=== PATIENT | male | born 1975 | race Hispanic/Latino ===

== ENCOUNTER 2017-09-18 09:43 | Emergency (ER) | payer SELFPAY ==
[2017-09-18] MEDS ORDERED: SUCCINYLCHOLINE CHLORIDE 200 MG/10 ML VIAL ONE (10:04)
[2017-09-18] MEDS ORDERED: MANNITOL 500 ML IVS ONE (10:09)
[2017-09-18] MEDS ORDERED: niCARdipine HCL 2.5 MG/ML AMP IVPB ONE (10:24)
--- NOTE | 2017-09-18 10:25 | CT ---
EXAM DESCRIPTION: Head: Computed Tomography. CLINICAL HISTORY: Right-sided H/A, L-sided paralysis COMPARISON: None. TECHNIQUE: Non-helical axial scans through the skull and brain, at 5.0 mm intervals, non-contrast. Coronal and sagittal 2.5 mm reconstructions. Total Exam DLP: 859.97 mGy-cm. This exam was performed according to our departmental dose-optimization program which includes automated exposure control, adjustment of the mA and/or kV according to patient size and/or use of iterative reconstruction technique; to reduce radiation dose to as low as reasonably achievable (ALARA). FINDINGS: Large intra-axial hemorrhage in the right occipital and parietal lobes at the level of the ventricles and extending to the vertex. Mass effect in the parietal and occipital lobes upper right temporal lobe and posterior right frontal lobe with midline shift. Intraventricular hemorrhage also noted on the right with dilation of the left ventricle including the left temporal horn. Left shift of the third ventricle. Hemorrhage also noted in the falx. The cerebellum tentorium is not depressed.. No tonsillar cerebellar herniation. Prominent cisterna magna. Minimal fluid in the upper sella. Vascular calcifications not present.; physiologic calcifications in the pineal gland and choroid plexus. No extra axial fluid collection or hemorrhage. No gross abnormalities of the bony calvarium. Mucoperiosteal thickening right maxillary antrum, base of the left antrum and the ethmoid air cells. IMPRESSION: 1. Large intra-axial hemorrhage in the posterior right parietal lobe and occipital lobe with mass effect on these lobes superior right temporal lobe and posterior right frontal lobe. Minimal midline shift. No depression of the cerebellar tentorium and no cerebellar tonsillar herniation. Differential includes hypertensive hemorrhagic cerebral infarction. Less likely Neoplastic primary or secondary hemorrhage, or chemical induced hemorrhage. 2. subarachnoid hemorrhage in the falx, right ventricle. Normal size of the third ventricle with dilated left lateral ventricle indicating obstructive hydrocephalus. CRITICAL COMMUNICATION: The critical value was discussed directly by phone with [facility] ER nurse at approximately 1008 hours, on 09/18/2017 Electronically signed by: Clinton Espinoza MD 09/18/2017 10:23 AM CDT
--- NOTE | 2017-09-18 10:33 | ED.PDOC ---
History of Present Illness - General Chief Complaint: Neuro Symptoms/Deficits Stated Complaint: Stroke-like sx's Time Seen by Provider: 09/18/17 10:30 Source: family - Exam Limitations: clinical condition - History of Present Illness Initial Comments: Saulo magana 41 y/o male brought by EMS aftar clling up his from work this am no t feelin well camarena mentioned left side weak.No chronic medical problem.Not taking chronic blood thinners/or aspirin.Brought by EMS FSBS glucose -137 Timing/Duration: 4-6 hours Severity: severe Episode Description: cva Improving Factors: nothing Worsening Factors: other - see hpi Associated Symptoms: sleepy, weakness Allergies/Adverse Reactions: Allergies NO KNOWN ALLERGY Allergy (Verified 09/18/17 09:49) Review of Systems - Review of Systems Unable to Obtain Due To: condition, clinical condition All other Systems: No Change from Baseline Past Medical History (General) - Patient Medical History Hx Seizures: No Hx Stroke: No Hx Hypertension: No Surgical History: no surgical history - Social History Hx Physical Abuse: No Hx Emotional Abuse: No Family Medical History - Family History Father Family History: Unknown Physical Exam - Physical Exam General Appearance: Alert, Other - profuse sweating Eye Exam: bilateral normal ENT Exam: normal ENT inspection, hearing grossly normal, pharynx normal, other Neck: full range of motion, supple, normal inspection, trachea midline Respiratory: chest non-tender, lungs clear, normal breath sounds Cardiovascular/Chest: normal peripheral pulses, regular rate, rhythm, no murmur Gastrointestinal/Abdominal: non tender, soft, no organomegaly, no pulsatile mass Back Exam: no CVA tenderness, no vertebral tenderness Extremities Exam: non-tender, no edema 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, 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: normal hearing, normal speech, facial weakness, other Motor/Sensory: positive Babinski's sign Skin Exam: normal color, warm/dry Progress - Progress Progress: 09/18/17 10:48 Vital Signs - 8 hr 09/18/17 09/18/17 09/18/17 09:43 10:15 10:22 Temperature 97.4 F L Pulse Rate [ 91 H 92 H 89 Apical] Respiratory 14 14 14 Rate Blood Pressure 146/68 194/105 213/104 [Right Arm] O2 Sat by Pulse 97 97 91 L Oximetry - Results/Orders Results/Orders: 09/18/17 10:29 Chest,1 View [RAD] Stat 09/18/17 10:30 CARDIAC ENZYME GROUP Stat COMPLETE METABOLIC PROFILE Stat PARTIAL THROMBOPLASTIN TIME Stat PROTHROMBIN TIME Stat CBC (AUTOMATED) W/AUTO DIFF Stat 09/18/17 10:34 Telemetry .ONCE 09/18/17 10:35 EKG Assessment ONCE 09/18/17 10:45 EKG STAT 09/18/17 10:48 Chest,1 View [RAD] Stat Laboratory Results - last 24 hr 09/18/17 10:30 POC Glucose 139 H Procedures - Intubation Time of Intubation: 10:52 Tube Size (cm): 8.0 Medications: Succinylcholine, Versed Breath Sounds after Intubation: equal Intubation Complications: vomited Post Intubation Xray: Yes Stroke Information - Onset of Symptoms Symptoms of Stroke: Weakness of limb Stroke Onset of Symptoms Date: 09/18/17 Stroke Onset of Symptoms Time: 06:00 - Contraindications Antithrombotic Contraindication: Medical Contraindication t-PA Contraindication: Drug Tx Not Indicated - hemorrhagic stroke Departure - Departure Clinical Impression: CVA (cerebrovascular accident due to intracerebral hemorrhage) Qualifiers: Intracerebral hemorrhage etiology: nontraumatic Cerebral hemorrhage location: cerebral hemisphere, unspecified portion Laterality: right Qualified Code(s): I61.2 - Nontraumatic intracerebral hemorrhage in hemisphere, unspecified Time of Disposition: 10:51 Disposition: Transfer to Hospital Condition: Poor Departure Forms: Patient Portal Self Enrollment Transfer to Outside Facility - Transfer Information Accepting Provider:: Neurologist Accepting Facility: [facility] NEUROLOGIST
[2017-09-18 10:43] VITALS: TEMP 97.4
[2017-09-18] MEDS ORDERED: MANNITOL 100 GM/500 ML BAG IVS ONE (10:53)
--- NOTE | 2017-09-18 10:58 | RAD ---
EXAM DESCRIPTION: Chest,1 View CLINICAL HISTORY: post intubation COMPARISON: None available TECHNIQUE: AP portable chest FINDINGS: An endotracheal tube is seen in place with the distal tip in the right mainstem bronchus. There is some partial atelectatic collapse of the left lung. The heart is at the upper limits of normal in size. The right chest is clear. Gaseous distention of the stomach is observed. IMPRESSION: Right mainstem intubation Results were called to Dr. Villaseñor Electronically signed by: Tong Lloyd MD 09/18/2017 10:57 AM CDT
[2017-09-18] MEDS ORDERED: VECURONIUM BROMIDE 10 MG VIAL IV ONE (11:00)
[2017-09-18] MEDS ORDERED: WATER FOR INJ 10 ML VIAL INJ ONE (11:00)
[2017-09-18] MEDS ORDERED: MIDAZOLAM INJ 5 MG/5 ML VIAL IV ONE (11:00)
[2017-09-18] MEDS ORDERED: niCARdipine HCL 25 MG in SODIUM CHLORIDE 0.9% 250ML 240 ML IVPB SCH (11:00)
[2017-09-18] MEDS ORDERED: ETOMIDATE INJECTION 2 MG/ML 20ML VIAL IV ONE (11:00)
--- NOTE | 2017-09-18 11:05 | RAD ---
EXAM DESCRIPTION: Chest,1 View CLINICAL HISTORY: retake of post intubation COMPARISON: 18 Sep 2017 TECHNIQUE: AP portable chest FINDINGS: An endotracheal tube is seen in place at the level of the aortic arch. Some residual atelectasis is observed in the left lung base. The right chest is clear. The heart is at the upper limits of normal in size. Gaseous distention of the stomach is observed. IMPRESSION: 1. The endotracheal tube is seen at the level of the aortic arch. There is some residual left basilar atelectasis. 2. Marked gaseous distention of stomach is observed. Electronically signed by: Tong Lloyd MD 09/18/2017 11:03 AM CDT
[2017-09-18] MEDS ORDERED: fentaNYL CITRATE INJ 50 MCG/ML AMP ONE (11:08)
[2017-09-18 14:38] VITALS: BP 171/96; O2SAT 96
== END 2017-09-18 11:10 | disposition short-term general hospital (02) ==
LOC: ER 09:43 → EDBD 09:43 → ER 11:10
DX: I61.1 Nontraumatic intracerebral hemorrhage in hemisphere, cortical (principal); I60.8 Other nontraumatic subarachnoid hemorrhage; G81.94 Hemiplegia, unspecified affecting left nondominant side
CPT/HCPCS: 31500; 36415; 36416; 70450; 71045; 80053; 82550; 82553; 82948; 84484; 85025; 85610; 85730; 93005; 94002; 94760; A4216; J0330; J2250; J7799

== ENCOUNTER 2018-08-13 18:17 | Emergency (ER) | payer SELFPAY ==
[2018-08-13 18:39] VITALS: TEMP 98.2; O2SAT 94
[2018-08-13] MEDS ORDERED: LABETALOL INJ 5 MG/ML VIAL IV ONE (18:46)
[2018-08-13] MEDS ORDERED: ONDANSETRON INJ 4 MG/2 ML VIAL IV ONE (18:47)
--- NOTE | 2018-08-13 18:55 | ED.PDOC ---
History of Present Illness - General Chief Complaint: General Stated Complaint: Pt states dizziness and lightheadedness x 30 mins Time Seen by Provider: 08/13/18 18:46 Source: patient, family Exam Limitations: no limitations - History of Present Illness Initial Comments: THIS PATIENT WAS AT HOME, SITTING ON THE SIDE OF THE BED. HE INJURED HIS LEFT ANKLE YESTERDAY AND THE WAS PLACING AN ICE BAG ON THE ANKLE. SUDDENLY HE FELT VERY DIZZY STARTED TO SCREAM FOR HELP AND THEN WENT INTO A SHAKING SPELL WITH HIS EYES ROLLED UP. THE FAMILY ELECTED TO ACTIVATE THE EMS. HE NEVER LOST CONSCIOUSNESS AND THE DESCRIPTION OF THE SHAKING SPELL ISN'T CLEAR IF THIS WAS A SEIZURE OR SEIZURE LIKE ACTIVITY. HE HAS HTN AND IN SEPTEMBER HE HAS AN INTRACEREBRAL BLEED MOST LIKELY A HYPERTENSIVE BLEED. ACCORDING TO THE FAMILY HE WAS INTUBATED HERE AND THEN WAS SHIPPED [facility] IN [place] WHERE HE SPEND ABOUT A MONTH IN THE HOSPITAL. HE NOW HAS LEWFT SIDED WEAKNESS FROM THIS STROKE. Timing/Duration: 1 hour Severity: moderate Improving Factors: nothing Worsening Factors: nothing Associated Symptoms: malaise, seizure Allergies/Adverse Reactions: Allergies NO KNOWN ALLERGY Allergy (Verified 08/13/18 19:03) Home Medications: Ambulatory Orders Metoprolol Tartrate [Lopressor] 25 mg PO BID 08/13/18 amLODIPine BESYLATE [Norvasc] 5 mg PO DAILY 08/13/18 Review of Systems - Review of Systems Constitutional: States: malaise, weakness EENTM: States: no symptoms reported Respiratory: States: no symptoms reported Cardiology: States: no symptoms reported Gastrointestinal/Abdominal: States: nausea, vomiting Genitourinary: States: no symptoms reported Musculoskeletal: States: muscle pain Neurological: States: anxiety, seizure Endocrine: States: no symptoms reported Hematologic/Lymphatic: States: no symptoms reported Past Medical History (General) - Patient Medical History Hx Seizures: No Hx Stroke: Yes - 2018 Hx of COPD: No Hx Cardiac Disorders: Yes Hx Congestive Heart Failure: No Hx Hypertension: Yes Hx Diabetes: No Surgical History: appendectomy - Vaccination History Hx Tetanus, Diphtheria Vaccination: No Hx Influenza Vaccination: No Hx Pneumococcal Vaccination: No - Social History Hx Tobacco Use: No Hx Alcohol Use: Yes Hx Substance Use: No Hx Substance Use Treatment: No Hx Depression: No Hx Physical Abuse: No Hx Emotional Abuse: No - Female History Patient is a Female of Child Bearing Age (10 -59 yrs old): No Patient : No Family Medical History - Family History Father Family History: Unknown Physical Exam - Physical Exam General Appearance: Alert, No apparent distress, Well Developed, Well Nourished Eye Exam: bilateral normal Ears, Nose, Throat: hearing grossly normal, normal ENT inspection Neck: non-tender, full range of motion, supple, normal inspection Respiratory: chest non-tender, lungs clear, normal breath sounds, no respiratory distress, no accessory muscle use Cardiovascular/Chest: normal peripheral pulses, regular rate, rhythm, no edema, no gallop, no JVD, no murmur Peripheral Pulses: radial,right: 2+, radial,left: 2+ Gastrointestinal/Abdominal: normal bowel sounds, other - HAS A G-TUBE ON THE LEFT UPPER QUADRANT Back Exam: normal inspection, no CVA tenderness Extremity: other - THE LEFT HAND HAS LITTLE MOVEMENT, ITS CLENCH IN A FIST. HE HAS MOVEMENT OF THE LEFT UPPER EXTREMITY BUT IS WEAK. THE SAME WITH THE LEFT LOWER EXTREMITY, ITS WEAKER THAN THE RIGHT SIDE. 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, alert, normal mood/affect, oriented x 3 Skin Exam: normal color Lymphatic: no adenopathy Progress - Progress Progress: 08/13/18 19:54 08/13/18 19:00 EKG STAT Laboratory Results WBC 4.4 K/mm3 (4.8-10.8) L 08/13/18 18:58 RBC 4.52 M/mm3 (4.70-6.10) L 08/13/18 18:58 Hgb 14.1 gm/dL (14.0-18.0) 08/13/18 18:58 Hct 41.6 % (42.0-52.0) L 08/13/18 18:58 MCV 92.2 fl (80.0-94.0) 08/13/18 18:58 MCH 31.1 pg (27.0-31.0) H 08/13/18 18:58 MCHC 33.8 g/dL (33.0-37.0) 08/13/18 18:58 RDW 13.7 % (11.5-14.5) 08/13/18 18:58 Plt Count 92 K/mm3 (130-400) L 08/13/18 18:58 MPV 9.8 fl (7.40-10.4) 08/13/18 18:58 Absolute Neuts (auto) 2.40 K/uL (1.8-6.8) 08/13/18 18:58 Absolute Lymphs (auto) 1.50 K/uL (1.0-3.4) 08/13/18 18:58 Absolute Monos (auto) 0.40 K/uL (0.2-0.8) 08/13/18 18:58 Absolute Eos (auto) 0.00 K/uL (0.0-0.4) 08/13/18 18:58 Absolute Basos (auto) 0.00 K/uL (0.0-0.1) 08/13/18 18:58 Neutrophils % 56.0 % (42.0-78.0) 08/13/18 18:58 Lymphocytes % 34.0 % (20.0-50.0) 08/13/18 18:58 Monocytes % 8.7 % (2.0-9.0) 08/13/18 18:58 Eosinophils % 0.7 % (1.0-5.0) L 08/13/18 18:58 Basophils % 0.6 % (0.0-2.0) 08/13/18 18:58 PT 11.8 SECONDS (9.0-10.9) H 08/13/18 18:58 INR 1.18 (0.9-1.15) H 08/13/18 18:58 PTT (SP) 28.7 SECONDS (21.8-31.6) 08/13/18 18:58 Sodium 135 mmol/L (135-145) 08/13/18 18:58 Potassium 3.5 mmol/L (3.6-5.0) L 08/13/18 18:58 Chloride 102 mmol/L (101-111) 08/13/18 18:58 Carbon Dioxide 19 mmol/L (21-31) L 08/13/18 18:58 Anion Gap 17.5 (12-18) 08/13/18 18:58 BUN 8 mg/dL (7-18) 08/13/18 18:58 Creatinine 0.44 mg/dL (0.6-1.3) L 08/13/18 18:58 BUN/Creatinine Ratio 18.2 (10-20) 08/13/18 18:58 Random Glucose 132 mg/dL (70-105) H 08/13/18 18:58 Serum Osmolality 270.3 mOsm/L (275-295) L 08/13/18 18:58 Calcium 9.0 mg/dL (8.4-10.2) 08/13/18 18:58 Total Bilirubin 1.9 mg/dL (0.2-1.0) H 08/13/18 18:58 AST 49 IU/L (10-42) H 08/13/18 18:58 ALT 28 IU/L (10-60) 08/13/18 18:58 Alkaline Phosphatase 98 IU/L (42-121) 08/13/18 18:58 Serum Total Protein 9.2 gm/dL (6.4-8.2) H 08/13/18 18:58 Albumin 4.4 g/dl (3.2-5.5) 08/13/18 18:58 Globulin 4.8 gm/dL (2.3-3.5) H 08/13/18 18:58 Albumin/Globulin Ratio 0.9 (1.1-1.9) L 08/13/18 18:58 - Results/Orders Results/Orders: EKG: HR OF 109, UT INTERVAL OF 146, QRS OF 94, QTC OF 506, AXES OF -12 DEGREES. IMPRESSION: SINUS TACHYCARDIA, NO ACUTE INJURY PATTERN. ct of the head: POST SURGICAL CHANGES, NO ACUTE INTRACEREBRAL PROCESS. THE BP IS NOW 129 SYSTOLIC. WILL DC. AT THIS POINT WILL HOLD ON ANTIEPILEPTIC MEDS SINCE IT IS UNCLEAR IF THIS WAS A SEIZURE OR NOT. Departure - Departure Clinical Impression: Dizzy spells Hypertension Qualifiers: Hypertension type: essential hypertension Qualified Code(s): I10 - Essential (primary) hypertension Time of Disposition: 19:56 Disposition: Discharge to Home or Self Care Condition: Fair Departure Forms: ED Discharge - Pt. Copy, Patient Portal Self Enrollment Diet: resume usual diet Home Medications: Ambulatory Orders Metoprolol Tartrate [Lopressor] 25 mg PO BID 08/13/18 amLODIPine BESYLATE [Norvasc] 5 mg PO DAILY 08/13/18 Additional Instructions: FOLLOW UP WITH FAMILY DOCTOR OF CHOICE ONE WEEK
--- NOTE | 2018-08-13 19:47 | CT ---
EXAM DESCRIPTION: Head CLINICAL HISTORY: 42 years Male new onset seizure COMPARISON: September 18, 2017. TECHNIQUE: Images were obtained in axial, sagittal, and coronal planes. FINDINGS: Interval surgery right temporal and parietal lobes with evacuation of previously noted large intracerebral hematoma. Metallic wires with artifact no present peripherally. Large low-attenuation focus which is isointense with cerebrospinal fluid is now identified at the site of prior blood products. The findings would be consistent with postsurgical change and encephalomalacia as well as resolution of blood products. The finding does not appear to communicate with the right lateral ventricle. The finding measures 6 cm in anterior posterior dimension, 4.2 cm in transverse dimension, and 4.8 cm in superior-inferior dimension. Cystic configuration is noted. Decreased visualization posterior horn right lateral ventricle. Previously noted right intraventricular blood products no longer visualized. Enlarged left lateral ventricle with 2 mm midline shift to the right. No evidence for subfalcine, transtentorial, or tonsillar herniation. Cisterna magna again seen unchanged. No extra-axial blood collections noted. No evidence for skull fracture. Mild mucosal thickening paranasal sinuses. Symmetric aeration mastoid fluid air cells bilaterally. IMPRESSION: Postsurgical changes right cerebral hemisphere with previously noted large right intracerebral hematoma no longer present. Cerebral spinal fluid cavity now identified at site of prior blood products. Postsurgical change and encephalomalacia as well as possibly developing porencephalic cyst should be considered. No evidence for hemorrhage or herniation on present study. Electronically signed by: Kasey Hudson MD 08/13/2018 7:44 PM CDT
[2018-08-13] MEDS ORDERED: HYDROcodone 10MG/APAP 325MG 1 EA TAB PO ONE (19:57)
[2018-08-13 20:32] VITALS: BP 147/84
== END 2018-08-13 20:34 | disposition home or self-care (01) ==
LOC: ER 18:17
DX: R42 Dizziness and giddiness (principal); I10 Essential (primary) hypertension; R00.0 Tachycardia, unspecified; I51.9 Heart disease, unspecified; I69.354 Hemiplegia and hemiparesis following cerebral infarction affecting left non-dominant side; Z79.899 Other long term (current) drug therapy
CPT/HCPCS: 36415; 70450; 80053; 85025; 85610; 85730; 93005; J2405

== ENCOUNTER 2019-08-29 16:58 | Emergency (ER) | payer SELFPAY ==
[2019-08-29] MEDS ORDERED: BUPIVACAINE 0.5% 30 ML VIAL INJ ONE ×2 (17:13→17:49)
[2019-08-29] MEDS ORDERED: BUPIVACAINE 0.25% INJ 30 ML VIAL INJ ONE (17:22)
[2019-08-29] MEDS ORDERED: TETANUS,DIPHTHERIA,PERTUSSIS 1 EA SYG IM ONE (17:22)
[2019-08-29] MEDS ORDERED: ceFAZolin SODIUM 1 GM in SODIUM CHL 0.9% 50ML MIN-BAG+ 50 ML IVPB ONE (17:23)
[2019-08-29] MEDS ORDERED: SODIUM CHL 0.9% 50ML MIN-BAG+ 50 ML IVPB ONE (17:39)
[2019-08-29] MEDS ORDERED: ceFAZolin SODIUM 1 GM VIAL ONE (17:39)
[2019-08-29] MEDS ORDERED: SODIUM CHLORIDE 0.9% (FLUSH) 10 ML SYG IV PRN (17:46)
[2019-08-29] MEDS ORDERED: SODIUM CHLORIDE 0.9% 500ML 500 ML IVS ONE (17:47)
--- NOTE | 2019-08-29 17:52 | ED.PDOC ---
History of Present Illness - General Chief Complaint: Syncope/Near Syncope Stated Complaint: Possible syncopal episode, fall w/laceration Time Seen by Provider: 08/29/19 17:21 - History of Present Illness Initial Comments: 43-year-old male presents with son after witnessed near syncopal event today, striking his head and suffering left ear complicated laceration against hard structure. No loss of consciousness, denies headache at this time. Patient states he felt dizzy prior to the fall, was going to get his blood pressure medications. Denies antecedent chest pain or palpitations. Allergies/Adverse Reactions: Allergies NO KNOWN ALLERGY Allergy (Verified 08/29/19 17:43) Home Medications: Ambulatory Orders Metoprolol Tartrate [Lopressor] 25 mg PO BID 08/13/18 amLODIPine BESYLATE [Norvasc] 5 mg PO DAILY 08/13/18 Cephalexin Monohydrate [Keflex] 500 mg PO TID #21 cap 08/29/19 Tramadol HCl 50 mg PO Q8H PRN #10 tab 08/29/19 Review of Systems - Review of Systems Review of Systems: 08/29/19 17:50 General: Denies generalized weakness, fever, arthralgia/myalgia HEENT: Denies sore throat, rhinorrhea Cardiovascular: Denies chest pain, palpitations Respiratory: Denies SOB, cough Gastrointestinal: Denies abdominal pain, vomiting, diarrhea : Denies dysuria, frequency Musculoskeletal: Denies extremity pain, extremity swelling Integument: Denies rash, itching Neuro: Denies focal weakness or numbness, had dizziness Psych: Denies depression, hallucinations. Past Medical History (General) - Patient Medical History Hx Seizures: No Hx Stroke: Yes - 2019 Hx of COPD: No Hx Cardiac Disorders: No Hx Congestive Heart Failure: No Hx Hypertension: Yes Hx Diabetes: No Hx Cancer: No Surgical History: appendectomy - Vaccination History Hx Tetanus, Diphtheria Vaccination: No Hx Influenza Vaccination: No Hx Pneumococcal Vaccination: No Immunizations Up to Date: No - Social History Hx Tobacco Use: No Hx Alcohol Use: Yes Hx Substance Use: No Hx Substance Use Treatment: No Hx Depression: No Hx Physical Abuse: No Hx Emotional Abuse: No - Female History Patient is a Female of Child Bearing Age (10 -59 yrs old): No Patient : No Family Medical History - Family History Father Family History: Unknown Physical Exam - Physical Exam Comments: General Appearance: Patient is awake and alert. Skin: Warm and dry. No diaphoresis. No rash or other lesions. Head: Normocephalic/atraumatic. Eyes: PERRL, lids, conjunctiva and sclera unremarkable. EOMI intact. ENT: No nasal discharge. Oropharynx. Without erythema, exudate, lesions. Moist mucous membranes. full thickness lac 4cm left pinna, transected, exposure cartilage, ongoing bleeding. Neck: Supple. No LAD. No tenderness. No JVD noted. Respiratory: Normal rate and effort. Breath sounds clear bilaterally. Cardiovascular: Regular rate. Heart sounds normal. No murmur. GI: Abdomen soft, non-distended and non-tender. No rebound/guarding. Bowel sounds normal. Back: No tenderness Musculoskeletal: Extremities- Normal range of motion. No effusion, cyanosis, edema. Neurological: Alert. No facial palsy. Speech clear. Gag intact. No motor deficit, str symmetric. No sensory deficit. Progress - Progress Progress: 08/29/19 19:19 Vital Signs - 24 hr 08/29/19 08/29/19 17:00 17:23 Temperature 97.4 F L Pulse Rate [ 95 H 95 H Pulse ox] Respiratory 16 16 Rate Blood Pressure 136/83 [R brachial] O2 Sat by Pulse [address] head without acute abnormality 08/29/19 17:46 Sodium Chloride 0.9% (Flush) [Saline Flush Syringe] 10 ml IV PRN PRN 08/29/19 17:47 Pulse Ox Stat Pulse Oximetry Assessment DAILY Laboratory Results WBC 4.2 K/mm3 (4.8-10.8) L 08/29/19 17:50 RBC 3.85 M/mm3 (4.70-6.10) L 08/29/19 17:50 Hgb 11.1 gm/dL (14.0-18.0) L 08/29/19 17:50 Hct 33.1 % (42.0-52.0) L 08/29/19 17:50 MCV 86.1 fl (80.0-94.0) 08/29/19 17:50 MCH 28.8 pg (27.0-31.0) 08/29/19 17:50 MCHC 33.5 g/dL (33.0-37.0) 08/29/19 17:50 RDW 17.1 % (11.5-14.5) H 08/29/19 17:50 Plt Count 101 K/mm3 (130-400) L 08/29/19 17:50 MPV 9.6 fl (7.40-10.4) 08/29/19 17:50 Absolute Neuts (auto) 1.80 K/uL (1.8-6.8) 08/29/19 17:50 Absolute Lymphs (auto) 2.00 K/uL (1.0-3.4) 08/29/19 17:50 Absolute Monos (auto) 0.40 K/uL (0.2-0.8) 08/29/19 17:50 Absolute Eos (auto) 0.10 K/uL (0.0-0.4) 08/29/19 17:50 Absolute Basos (auto) 0.00 K/uL (0.0-0.1) 08/29/19 17:50 Neutrophils % 41.9 % (42.0-78.0) L 08/29/19 17:50 Lymphocytes % 46.3 % (20.0-50.0) 08/29/19 17:50 Monocytes % 9.4 % (2.0-9.0) H 08/29/19 17:50 Eosinophils % 1.3 % (1.0-5.0) 08/29/19 17:50 Basophils % 1.1 % (0.0-2.0) 08/29/19 17:50 PT 13.4 SECONDS (9.0-10.9) H 08/29/19 17:50 INR 1.35 (0.9-1.15) H 08/29/19 17:50 PTT (SP) 32.1 SECONDS (21.8-31.6) H 08/29/19 17:50 Sodium 141 mmol/L (135-145) 08/29/19 17:50 Potassium 3.4 mmol/L (3.6-5.0) L 08/29/19 17:50 Chloride 113 mmol/L (101-111) H 08/29/19 17:50 Carbon Dioxide 18 mmol/L (21-31) L 08/29/19 17:50 Anion Gap 13.4 (12-18) 04/25/20 17:50 BUN < 5 mg/dL (7-18) L 08/29/19 17:50 Creatinine < 0.40 mg/dL (0.6-1.3) L 08/29/19 17:50 BUN/Creatinine Ratio 12.0 (10-20) 08/29/19 17:50 Random Glucose 111 mg/dL (70-105) H 08/29/19 17:50 Serum Osmolality 278.9 mOsm/L (275-295) 08/29/19 17:50 Calcium 8.1 mg/dL (8.4-10.2) L 08/29/19 17:50 Magnesium 1.9 mg/dL (1.8-2.5) 08/29/19 17:50 Creatine Kinase 200 IU/L (38-174) H 08/29/19 17:50 CK-MB (CK-2) 7.0 ng/mL (0.0-4.4) H* 08/29/19 17:50 CK-MB (CK-2) % 3.50 % (0.0-3.5) 08/29/19 17:50 Troponin I < 0.02 ng/mL (0.01-0.05) 08/29/19 17:50 08/29/19 20:17 Safety Stop Patient feels better after lac repair. VS, exam remain reassuring. Labs, imaging are without acute abnormality. I have discussed findings, diff dx, plan of care, need for follow-up, and reasons to return to the ED. Safety Stop (Diagnostic Time-Out): Tachycardia: No Diagnostic Studies: Reviewed Diagnostic Certainty: moderate Patient/family feels safe with discharge: Yes Procedures - Laceration/Wound Repair Left Ear Wound Length (cm): 7 - full thickness, cartilage exposued Wound's Depth, Shape: irregular Irrigated w/ Saline (cc's): 1,000 Wound Repaired With: sutures Suture Size/Type: 6:0, prolene Number of Sutures: 7 Sterile Dressing Applied?: Yes Splint Applied?: Yes - pressure dressing to front/back of ear Progress: Procedure: left ear regional block, 0.5% marcaine, sup/inferior approach, good anesthesia, no complication. Departure - Departure Clinical Impression: Laceration of ear, Head injury, closed, Near syncope Disposition: Discharge to Home or Self Care Condition: Good Departure Forms: ED Discharge - Pt. Copy, Patient Portal Self Enrollment Instructions: DI for Laceration Repair Diet: resume usual diet Activity: increase activity as tolerated Prescriptions: Cephalexin Monohydrate [Keflex] 500 mg PO TID #21 cap Tramadol HCl 50 mg PO Q8H PRN #10 tab PRN Reason: Pain Home Medications: Ambulatory Orders Metoprolol Tartrate [Lopressor] 25 mg PO BID 08/13/18 amLODIPine BESYLATE [Norvasc] 5 mg PO DAILY 08/13/18 Cephalexin Monohydrate [Keflex] 500 mg PO TID #21 cap 08/29/19 Tramadol HCl 50 mg PO Q8H PRN #10 tab 08/29/19 Additional Instructions: OK to remove bandage and shower as usual tomorrow. Use regular soap and water. We recommend follow-up with Plastic Surgery or Ear, Nose and Throat Surgery in one week to evaluate wound. Otherwise, return to the Emergency Room in 10 days for suture removal.
--- NOTE | 2019-08-29 18:58 | CT ---
EXAM DESCRIPTION: Head CLINICAL HISTORY: 43 years Male head trauma, somlonence COMPARISON: Prior study dated August 13, 2018. TECHNIQUE: Images were obtained in axial, sagittal, and coronal planes. This exam was performed according to our departmental dose-optimization program which includes use of Automated Exposure Control, adjustment of the mA and/or kV according to patient size and/or use of iterative reconstruction technique. FINDINGS: Postsurgical changes right temporal and parietal lobes again noted with large cystic finding consistent with sequela of prior surgery and encephalomalacia again noted. Beam hardening artifact related to metallic clips. No new abnormal areas of increased attenuation seen. Right lateral ventricle decreased in size as compared to left. These findings are unchanged when correlated with the prior study. No evidence for skull fracture. Symmetric aeration mastoid air cells bilaterally. Unremarkable paranasal sinuses. IMPRESSION: No acute intracranial abnormality. No evidence for hemorrhage, mass lesion, or large acute infarction. Postsurgical changes on right unchanged when correlated with the prior study. Electronically signed by: Kasey Hudson MD 08/29/2019 6:57 PM CDT
[2019-08-29 20:25] VITALS: BP 127/72; TEMP 98.6; O2SAT 97
== END 2019-08-29 20:25 | disposition home or self-care (01) ==
LOC: ER 16:58
DX: S01.312A Laceration without foreign body of left ear, initial encounter (principal); S09.90XA Unspecified injury of head, initial encounter; R55 Syncope and collapse; I10 Essential (primary) hypertension; Z86.73 Personal history of transient ischemic attack (TIA), and cerebral infarction without residual deficits; W18.30XA Fall on same level, unspecified, initial encounter; Y92.9 Unspecified place or not applicable
CPT/HCPCS: 70450; 80048; 82550; 82553; 84484; 85025; 85610; 85730; 90471; 90715; 93005; J0690; J7040; J7050